=== PATIENT | male | born 1990 | race Caucasian/White ===

== ENCOUNTER 2017-06-22 01:32 | Emergency (ER) | payer OTHER ==
[~2017-06-22] VITALS: Ht 185.4 cm; Wt 118.0 kg
[2017-06-22 02:03] LABS: DAU SCREEN DISCLAIMER
[2017-06-22 02:20] VITALS: BP 128/88
[2017-06-22 02:48] LABS: HEMATOCRIT 46.8 % (39.2-51.8); HEMOGLOBIN 16.1 g/dL (13.7-18.0); WHITE BLOOD COUNT 5.9 x10^3/uL (3.4-10)
[2017-06-22 03:00] LABS: BLOOD UREA NITROGEN 8 mg/dL (7-18)
[2017-06-22 03:04] LABS: ASPARTATE AMINO TRANSFERASE 23 U/L (15-37)
[2017-06-22 03:08] LABS: ACETAMINOPHEN < 2 mcg/mL (10-30)
[2017-06-22] MEDS ORDERED: NICOTINE 14MG/24 HR PATCH.TD24 ONE (04:08)
[2017-06-22] MEDS ORDERED: NICOTINE 14MG/24 HR PATCH.TD24 TD ONE (04:30)
[2017-06-22] MEDS ORDERED: NICOTINE 7 MG/24 HR PATCH.TD24 TD SCH (04:30)
== END 2017-06-22 06:02 | disposition home or self-care (01) ==
LOC: ED 05:26
DX: R45.851 Suicidal ideations (principal); F10.120 Alcohol abuse with intoxication, uncomplicated; F32.9 Major depressive disorder, single episode, unspecified; F43.22 Adjustment disorder with anxiety; Z88.0 Allergy status to penicillin
CPT/HCPCS: 36415; 80053; 80307; 80329; 85025; 99284; G0479; G0480